=== PATIENT | female | born 1970 ===

== ENCOUNTER 2018-01-22 17:16 | Emergency (ER) | payer SELFPAY ==
[2018-01-22 17:23] VITALS: RESP 16
[2018-01-22] MEDS: Lactated Ringer's 1,000 ML IV STA (18:30)
[2018-01-22 18:37] LABS: BASO # 0.1 K/uL (0.0-0.2); EOS # 0.3 K/uL (0.0-0.7); EOS % 4.7 % (0.0-4.0); HEMOGLOBIN 14.5 g/dL (12.0-16.0); LYMPH # 1.6 K/uL (1.0-4.3); LYMPH % 27.9 % (20.0-40.0); MEAN CELL VOLUME 89.9 fl (81.0-99.0); MEAN CORPUSCULAR HEMOGLOBIN 30.8 pg (27.0-31.0); MEAN CORPUSCULAR HGB CONC 34.3 g/dL (33.0-37.0); MEAN PLATELET VOLUME 9.8 fl (7.2-11.7); MONO # 0.4 K/uL (0.0-0.8); MONO % 6.6 % (0.0-10.0); NEUT # 3.4 K/uL (1.8-7.0); NEUT % 59.8 % (50.0-75.0); NRBC % 0.3 % (0.0-0.0); RBC 4.69 Mil/uL (3.80-5.20); RED CELL DISTRIBUTION WIDTH 13.6 % (11.5-14.5); WHITE BLOOD COUNT 5.7 K/uL (4.8-10.8)
[2018-01-22 18:44] LABS: ALB/GLOB RATIO 1.3 (1.0-2.1); ALBUMIN 4.4 g/dL (3.5-5.0); ALT/SGPT 27 U/L (9-52); AST/SGOT 23 U/L (14-36); BLOOD UREA NITROGEN 10 mg/dl (7-17); CALCIUM 10.1 mg/dL (8.4-10.2); GFR AFRICAN-AMERICAN > 60; GFR NON-AFRICAN AMERICAN > 60
--- NOTE | 2018-01-22 18:56 | ED PDOC ---
HPI: Abdomen Time Seen by Provider: 01/22/18 17:40 Chief Complaint (Nursing): Abdominal Pain Chief Complaint (Provider): Pelvic Pain History/Exam Limitations: no limitations Onset/Duration Of Symptoms: Days (x 1 week ) Current Symptoms Are (Timing): Still Present Quality Of Discomfort: "Pain" Additional Complaint(s): 47 year old female presents to the ED with intermittent, left sided pelvic pain worsening over the last week since onset. Patient is 9 weeks (A4) and also complaining of mild back pain. She was seen at her PMD and sent here for evaluation. PMD: [facility] and women's Past Medical History Reviewed: Historical Data, Nursing Documentation, Vital Signs Vital Signs: Last Vital Signs Temp 98.2 F 01/22/18 17:20 Pulse 74 01/22/18 17:20 Resp 16 01/22/18 17:20 BP 118/81 01/22/18 17:20 Pulse Ox 100 01/22/18 20:02 - Medical History PMH: No Chronic Diseases - Surgical History Surgical History: Hernia Repair (umbilical; when she was a child ) - Family History Family History: States: Unknown Family Hx - Allergies Allergies/Adverse Reactions: Allergies Allergy/AdvReac Type Severity Reaction Status Date / Time amoxicillin Allergy ANAPHYLAXIS Verified 01/22/18 17:20 Review of Systems ROS Statement: Except As Marked, All Systems Reviewed And Found Negative Genitourinary Female: Positive for: Pelvic Pain Musculoskeletal: Positive for: Back Pain (mild ) Physical Exam - Reviewed Nursing Documentation Reviewed: Yes Vital Signs Reviewed: Yes - Physical Exam Appears: Positive for: Non-toxic, In Acute Distress (mild, painful ) Head Exam: Positive for: ATRAUMATIC, NORMAL INSPECTION, NORMOCEPHALIC Skin: Positive for: Warm, Dry Eye Exam: Positive for: EOMI, PERRL Neck: Positive for: Painless ROM, Supple Cardiovascular/Chest: Positive for: Regular Rate, Rhythm. Negative for: Murmur Respiratory: Positive for: Normal Breath Sounds. Negative for: Respiratory Distress Gastrointestinal/Abdominal: Positive for: Soft, Tenderness (to palpation LLQ). Negative for: Mass, Distended, Guarding, Rebound Extremity: Positive for: Normal ROM. Negative for: Deformity Lymphatic: Negative for: Adenopathy Neurologic/Psych: Positive for: Alert. Negative for: Motor/Sensory Deficits - Laboratory Results Result Diagrams: 01/22/18 18:30 01/22/18 18:30 - ECG O2 Sat by Pulse Oximetry: 100 (RA) Pulse Ox Interpretation: Normal Medical Decision Making Medical Decision Makin:40 Impression: pelvic pain in early preg Differential diagnoses include but are not limited to: round ligament pain, ovarian cyst, ectopic preg, UTI Initial Plan: --type and screen --Beta HCG --CMP --U dip --U preg --CBC --Lactated Ringer's IV 1,000 mls --OB Transvag US US FINDINGS: Gestation: 1.6 cm cystic structure in the uterus, could represent gestational sac in the appropriate clinical setting. This corresponds to a gestational age of 16 weeks and 1 day. No yolk sac or pole is identified at this time. Uterus/cervix: Multiple fibroids are noted in the uterus, largest in the anterior aspect measures 6.8 x 8.3 x 4.1 cm. Ovaries: Unremarkable. Free fluid: Trace free fluid. IMPRESSION: 1. 1.6 cm cystic structure in the uterus, could represent gestational sac in the appropriate clinical setting. This corresponds to a gestational age of 16 weeks and 1 day. No yolk sac or pole is identified at this time.Differential diagnosis includes , very early intrauterine , and ectopic . Advise serial beta HCG levels and follow up pelvic obstetrical ultrasound to assess for viability and exclude an ectopic . 2. Multiple fibroids are noted in the uterus, largest in the anterior aspect measures 6.8 x 8.3 x 4.1 cm. Time: 19:50 --Patient is now reporting migraine. Disucssed findings with her and need to return in 48 hours to the ED for repeat blood work. --Ectopic precautions were given. Patient to return immediately for severe pain. Otherwise repeat US in 1 week. Scribe Attestation: Documented by Trina Vazquez, acting as a scribe for Lynda Serrano MD Provider Scribe Attestation: All medical record entries made by the Scribe were at my direction and personally dictated by me. I have reviewed the chart and agree that the record accurately reflects my personal performance of the history, physical exam, medical decision making, and the department course for this patient. I have also personally directed, reviewed, and agree with the discharge instructions and disposition. Disposition - Clinical Impression Clinical Impression: Abdominal pain during Counseled Patient/Family Regarding: Studies Performed, Diagnosis, Need For Followup - Disposition [facility]] [facility] [Outside] Disposition: Routine/Home Disposition Time: 20:32 Condition: IMPROVED Additional Instructions: REGRESA ACQUI EN 48 HORAS A REPITAR OROZCO ANALISIS DE VICKI VISITA A [facility] PROXIMA SEMANA A REPITAR OROZCO S[place] TYLENOL PARA DOLOR REGRESA ACQUI INMEDIATO SI SIENTE PEOR Instructions: - The Second Month, - The Third Month, Uterine Fibroids Forms: [employer] (Albanian) Print Language: NORWEGIAN
[2018-01-22 20:56] VITALS: BP 109/70; PULSE 73; TEMP 98.6; O2SAT 99
--- NOTE | 2018-01-23 12:10 | US ---
HISTORY: LLQ pain r/o ectopic LMP 11/17/2017. Beta HCG results: Unknown COMPARISON: None available. TECHNIQUE: None FINDINGS: UTERUS: Measures 9.3 x 9.4 x 10 cm. Enlarged heterogeneous uterus. Multiple uterine fibroids with the largest identified anteriorly 4.1 x 6.8 x 0.3 cm. ENDOMETRIUM: Gestational sac identified 1.75 cm corresponds to gestational age 6 weeks 1 day. I yolk sac is identified. No intrauterine pole CERVIX: No cervical abnormality identified. Closed cervix 5.7 cm RIGHT OVARY: Measures 1.6 x 1.6 x 2 cm. No solid mass. Normal flow. LEFT OVARY: Measures 2.5 x 2.6 x 3.8 cm. No solid mass. Normal flow. FREE FLUID: Trace free fluid identified in the pelvis/cul de sac. OTHER FINDINGS: None. IMPRESSION: Small gestational sac and yolk sac. No visible pole. Enlarged myomatous uterus. Unremarkable adnexa. Concordant results (preliminary interpretation) provided by [facility]. Procedure Completed: 18:50 Preliminary ([facility]) Report: Dictated and Authenticated: 19:29 Final Interpretation: 12:[id number].
== END 2018-01-22 20:57 | disposition home or self-care (01) ==
LOC: H.ER 17:16
DX: O34.12 Maternal care for benign tumor of corpus uteri, second trimester (principal); D25.9 Leiomyoma of uterus, unspecified; O26.892 Other specified pregnancy related conditions, second trimester; Z3A.16 16 weeks gestation of pregnancy
CPT/HCPCS: 76817; 80053; 81025; 84702; 85025; 86850; 86900; 99284; J2765; J7120